=== PATIENT | female | born 1960 | race Caucasian/White ===

== ENCOUNTER 2017-02-10 16:06 | Observation (INO) | payer OTHER ==
[2017-02-10] VITALS (7 sets, daily range): BP systolic 132–148; BP diastolic 71–86; PULSE 54–63; RESP 13–20; O2SAT 96–99
[~2017-02-10] VITALS: Ht 165.1 cm; Wt 107.6 kg
[~2017-02-10 16:06] MED LIST: ASPI-973 PO; ASPI81TA3 PO; CLOP75TA28 PO; CLOP75TA3 PO; LIP40 PO; METO25TA99 PO; NICO1PAT16 TRANSDERM
[2017-02-10 16:31] LABS: BASOPHILS % (AUTO) 0.5 % (0-3); EOSINOPHILS % (AUTO) 2.5 % (0-5); MONOCYTES % (AUTO) 6.4 % (4-12); Mean Corpuscular Hemoglobin 28.6 pg (27.0-35.0); NEUTROPHILS % (AUTO) 60.9 % (40-74); Platelet Count 265 bil/L (150-400)
--- NOTE | 2017-02-10 16:52 | ED.REPORT ---
HPI-Chest Pain 40 and Over Date of Service Feb 10, 2017 ED Provider: Dr. Caryn Cruz MD A 56 year old female with a history of hypertension, hyperlipidemia and previous CT s/p cardiac stent and CABG presents to the ED via EMS complaining of lower chest discomfort that began 3 days ago. Patient was walking around when symptoms onset began. She was seen at Urgent Care today and given Nitro before being sent to the ED. The pain is located in her lower chest and upper abdomen. Her pain is exacerbated by flatulence and deep breath. Patient recently stopped taking Plavix. She states that this pain is lower than than the previous pain she felt during her CT that led to cardiac cath and CABG. She denies any SOB, recent fever, cough, cold or chills. Nursing Notes Stated Complaint: CHEST PAIN Chief Complaint: Chest Pain Nursing Notes Reviewed: Yes Allergies: Coded Allergies: erythromycin base (Verified Allergy, Severe, Stomach pain, 11/24/15) EDSON Inhibitors (Verified Allergy, Intermediate, Leg and chest pIn, 11/24/15) etodolac (Verified Allergy, Intermediate, HIVES, 11/24/15) iodine (Verified Allergy, Unknown, Blistering, 11/24/15) Scheduled Aspirin Chew (Aspirin Chew) 81 Mg Chew 162 MG PO DAILY Atorvastatin (Lipitor) 40 Mg Tablet 40 MG PO HS Cholecalciferol (Vitamin D3) (Vitamin D3) 2,000 Unit Tablet 2,000 UNIT PO DAILY Cyanocobalamin (Vitamin B12) 500 Mcg Tablet 1,000 MCG PO DAILY Fish Oil/Borage/Flax/Om3,6,9#1 ([place] 3-6-9 1,200 mg Softgel) 1,200 Mg Capsule 1 ,200 MG PO DAILY Metoprolol Succinate ER (Metoprolol Succinate ER) 25 Mg Tab.er.24h 25 MG PO QAM Ubidecarenone (Coenzyme Q-10) 200 Mg Capsule 200 MG PO DAILY General Time Seen by MD: 16:52 Chief Complaint Chest pain Hx Obtained From: Patient Arrived By: Ambulance Sudden in Onset?: No Onset Occurred: 3 days ago Symptom Duration: Since onset Location: : Chest left: Chest right: Epigastric Quality: Painful Radiation: : Does not radiate Migration/Movement: Reports: None Severity: Current: Mild Severity: Maximum: Moderate Associated with: Denies: Cough, non-productive, Cough, productive, Cough, with hemoptysis, Fever, Shortness of Breath Pertinent Negative: Pt denies other symptoms Exacerbated by: Deep breath Recent Healthcare: No recent doctor visit, No recent hospitalization Risk Factors )( CAD Risk Stratification Hypertension Risk factors reviewed )( TAD Risk Stratification Hypertension Risk factors reviewed )( PE Risk Stratification Risk factors reviewed Past Medical History Past Medical History Pt last had a stress test >5 years ago prior to surgery. Test was normal. Hospitalized 11/22-11/23 for chest pain: at time of d/c, results of MIBI study were pending Previous CT s/p CABG and stent Reports: Hyperlipidemia, Hypertension Past Surgical History Bilateral acromioplasty CABG Cardiac stent Family History Mother had two stents 10 years ago Smoking History Current Every Day Smoker Social History Alcohol Use: "Social" Drug Use: Denies drug use Other Social History: Good social support, , Local resident Ambulatory Status Independent Review of Systems Constitutional: Denies: Chills, Fever Respiratory: Denies: Shortness of breath Cardiovascular: Reports: Chest pain (Lower) GI: Reports: Abdominal pain (Upper), Denies: Nausea, Vomiting Neurologic: Denies: Change LOC Complete sys rev & neg: except as marked. Physical Exam Initial Vital Signs Vital Signs (First) Date Time Temp Pulse Resp B/P Pulse Ox O2 Delivery O2 Flow Rate FiO2 02/10/17 16:29 36.7 62 14 137/86 99 Room Air Initial VS: Reviewed Head / Eyes: Atraumatic, Normocephalic, PERRL Extremities: Vascular intact, Neuro intact, No swelling, No tenderness Skin: Warm, Dry, No cyanosis Neurologic: Alert, Oriented, Nonfocal Psychiatric: Mood/affect normal, Behavior normal, Normal thought content General/Constitutional: Awake, Alert Respiratory / Chest: Atraumatic, Breath sounds NL, Breath sounds = bilat, No respiratory distress Cardiovascular: Heart rate NL, Regular rhythm, Heart sounds NL, No murmurs Abdomen: Atraumatic, Soft, Non-tender Interpretation & Diagnostics Lab Results Interpretation Result Diagram: 02/10/17 1619 02/10/17 1619 Test 02/10/17 16:19 02/10/17 17:09 White Blood Count 9.5th/mm3 (3.8-10.1) Red Blood Count 5.24mil/mm3 (3.90-5.20) Hemoglobin 15.0g/dL (12.0-15.6) Hematocrit 43.5% (35.0-46.0) Mean Corpuscular Volume 83.0fL (81-100) Mean Corpuscular Hemoglobin 28.6pg (27.0-35.0) Mean Corpuscular Hemoglobin Concent 34.5% (32.0-37.0) Red Cell Distribution Width 13.4% (12.3-15.4) Platelet Count 265bil/L (150-400) Neutrophils (%) (Auto) 60.9% (40-74) Lymphocytes (%) (Auto) 29.5% (14-46) Monocytes (%) (Auto) 6.4% (4-12) Eosinophils (%) (Auto) 2.5% (0-5) Basophils (%) (Auto) 0.5% (0-3) Sodium Level 142mEq/L (134-144) Potassium Level 4.2mEq/L (3.5-5.2) Chloride Level 104mEq/L (97-108) Carbon Dioxide Level 23mmol/L (18-29) Blood Urea Nitrogen 11mg/dL (6-24) Creatinine 0.67mg/dL (0.57-1.00) Estimat Glomerular Filtration Rate 130mL/min (>59) Glucose Level 104mg/dL (60-99) Calcium Level 9.2mg/dL (8.5-10.1) Magnesium Level 2.1mg/dL (1.6-2.6) Total Bilirubin 0.3mg/dL (0.0-1.2) Aspartate Amino Transf (AST/SGOT) 19U/L (0-50) Alanine Aminotransferase (ALT/SGPT) 23U/L (0-32) Alkaline Phosphatase 94U/L (25-150) Troponin T < 0.010ug/L (0.0-0.011) Total Protein 6.9g/dL (6.4-8.4) Albumin 4.2g/dL (3.4-5.0) Lipase 153U/L (13-60) Hold Urine Received (Received) ECG Interpretation ECG Interpretation: Normal sinus rhythm Rate 56 Time: 16:34 Interpreted by: ED physician Normal ECG Interpretation: No change from prior ECGs X-Ray Chest Interpretation Chest Xray Interpretation: IMPRESSION: No acute cardiopulmonary disease process. Dictated by: Melissa Dubon MD, PhD on 02/10/2017 at 17:30 Interpretation / Wet Read by: Interpret - Radiologist Re-Eval/Medical Decision Med Decision/Clinical Course Presents with left upper quadrant/chest pain. History of coronary artery disease with stenting and CABG about a year ago stopped Plavix 2 weeks ago. Describes this pain as left upper quadrant radiating into the epigastrium and up under her sternum. Lipase is mildly elevated. Symptoms are consistent with acute pancreatitis. Given her recent cardiac history I believe that additional serial troponins are prudent. Discussed bowel rest IV fluids pain and nausea medication as needed. She has no identified reason for developing pancreatitis, no new or changed medications. Recent lipid panel suggested that everything looked within normal limits no odd exposures. CT scan was requested in the emergency Department however she is allergic to iodine and not feeling well enough to drink oral contrast at this point believe additional imaging studies to hospitalist to determine if they are needed. No evidence of acute cholecystitis at this point Time of Eval: 19:35 Patient Status: Condition improved Re-Evaluation/Progress Note: Patient is rechecked. She is informed of her results and diagnosis. All of the patient's questions about her diagnosis are addressed. She understands and agrees with plan to admit. Consultation : Referral / Consult Name: Gregg Lundberg MD Consulted With: Hospitalist Call Returned at: 20:35 Vice President Digital Strategist: Will see patient, Agrees with eval, Agrees with plan, Accepts admit Counseled Regarding: Diagnosis, Lab results, Need for follow-up, When/why to return to ED Discharge & Departure Primary Impression: Pancreatitis Chronicity: acute Pancreatitis type: unspecified pancreatitis type Qualified Code: K85.9 - Acute pancreatitis, unspecified Additional Impression: Chest pain Chest pain type: unspecified Qualified Code: R07.9 - Chest pain, unspecified Disposition: ADMITTED TO HOSPITAL Discharge Condition All VS Reviewed: Yes Condition: Improved Referrals: Addi Osorio MD (PCP) Manjit Attestation Portions of this note were transcribed by Jasmina Edge. I, Dr. Cruz personally performed the history, physical exam and medical decision-making; I reviewed and confirmed the accuracy of the information in the transcribed note. Signed by: Manjit Hernandez, 02/10/171999. copies to: Addi Osorio MD, Shawna L MD Feb 10, 2017 16:52 JASMINA EDGE Feb 10, 2017 17:01
[2017-02-10 17:00] LABS: TROPONIN T < 0.010 ug/L (0.0-0.011)
[2017-02-10 17:09] LABS: Magnesium 2.1 mg/dL (1.6-2.6)
--- NOTE | 2017-02-10 17:33 | DRSVH ---
PROCEDURE: X-RAY CHEST ONE VIEW, PORTABLE ([id number]) INDICATIONS: chest pain TECHNIQUE: One view of the chest was acquired. COMPARISON: [facility], CR, XR CHEST 1VW (PORTABLE), 11/24/2015, 15:17. FINDINGS: Surgical changes and devices: CABG procedure. Lungs and pleura: No pleural effusions or pneumothorax. Lungs are clear. Mediastinum: Mediastinal contours appear normal. Heart size is normal. Bones and chest wall: No suspicious bony lesions. Overlying soft tissues appear unremarkable. IMPRESSION: No acute cardiopulmonary disease process. Dictated by: Melissa Dubon MD, PhD on 02/10/2017 at 17:30 Approved by: Melissa Dubon MD, PhD on 02/10/2017 at 17:31
[2017-02-10] MEDS ORDERED: METO25TA99 PO (20:04)
[2017-02-10] MEDS ORDERED: ASPI81TA3 PO (20:04)
[2017-02-10] MEDS ORDERED: LIP40 PO (20:04)
[2017-02-10] MEDS ORDERED: UBID200C31 PO (20:07)
[2017-02-10] MEDS ORDERED: CHOL200025 PO (20:07)
[2017-02-10] MEDS ORDERED: FISH12002 PO (20:07)
[2017-02-10] MEDS ORDERED: CYAN500 PO (20:07)
[2017-02-10] MEDS ORDERED: 0.9% Sodium Chloride 1,000 ML IV SCH (21:21)
[2017-02-10] MEDS ORDERED: Polyethylene Glycol (PEG) 17 Gm Powder PO PRN (21:25)
[2017-02-10] MEDS ORDERED: Alum-Mag Hydrox-Simeth 30 mL Suspension PO PRN (21:25)
[2017-02-10] MEDS ORDERED: HYDROmorphone 1 mg/mL Inj IVPUSH PRN (21:25)
[2017-02-10] MEDS ORDERED: Ondansetron 2 mg/mL 2 mL Inj IVPUSH PRN (21:25)
--- NOTE | 2017-02-10 22:17 | PCM.HPMED ---
Subjective Date of Service Feb 10, 2017 Primary Provider: Admitting Physician: Gregg Lundberg MD Primary Care Physician: Addi Osorio MD Attending Physician: Gregg Lundberg MD Chief Complaint: Abdominal pain History of Present Illness: Patient is a 56 y.o. F with past medical history of hyptetension, hyperlipidemia , previous PA 2016 s/p CAGB and stent placement stopped plavix per cardiology, GERD. Patient presented to ED via EMS with complaint of lower chest pain that began three days ago, dramatically worsened today, seen at urgent care today and given nitroglycerin and set to ED. Patient stated that pain is like bad indigestion and "burning in my chest," localized to her epigastric area without radiation, rated as moderate to severe, made better with nothing, made worse with food, deep breathing, and flatulence, nausea. Patient noted increases flatulence, belching, pain is different than last PA. She denies SOB, fever, chills, burising, change of eye or skin color, chills, vomiting, dysuria , diarrhea, constipation, blood in stool, change in stool color. Patient notes recent change in diet to "paleo diet" fruit, vegetables, meat. Chest pain on admit resolved at time of examination, abdominal epigastric pain present well controlled. Review of Systems: A comprehensive review of systems was conducted with the patient and found to be negative except as above in the History of Present Illness. Allergies Coded Allergies: erythromycin base (Verified Allergy, Severe, Stomach pain, 11/24/15) EDSON Inhibitors (Verified Allergy, Intermediate, Leg and chest pIn, 11/24/15) etodolac (Verified Allergy, Intermediate, HIVES, 11/24/15) iodine (Verified Allergy, Unknown, Blistering, 11/24/15) PMH HTN GERD PA s/p CABG and stent Hyperlipidemia Surgical History CABG 2016 cardiac stent 2016 Bilateral shoulder arthroscopy Right cubital tunnel release Family History Cholecystitis no family history of pancreatic cancer Social History Hx Alcohol Use: Yes (occasional) Hx Substance Use: No Smoking Status: Former Smoker (Quit one year ago, 36 pack year history) Exam Vital Signs Vital Sign - Last Date Time Temp Pulse Resp B/P Pulse Ox O2 Delivery O2 Flow Rate FiO2 02/10/17 21:48 63 20 145/79 96 Room Air 02/10/17 16:29 36.7 Exam General: No acute distress, well-developed, well-nourished, appropriately interactive, obese HEENT: Normocephalic, atraumatic. External ears without defect. Pupils equal, round, and reactive to light and accommodation. Anicteric sclerae, moist conjunctivae, and no lid lag. Oropharynx free of erythema and cobble stoning with moist mucosa. Neck: Supple with full range of motion. No jugular venous distension. No bruits. No lymphadenopathy or thyromegaly. Cardiovascular: Regular rate and rhythm with no murmurs, rubs, or gallops appreciated Pulmonary: Clear to auscultation bilaterally with no crackles, wheezes, or rhonchi. Normal respiratory effort with no use of accessory muscles. Abdomen: Normoactive bowel tones present. Soft, epigastrium tender to palpation , nondistended. No hepatosplenomegaly or masses appreciated. Extremities: No clubbing, cyanosis, edema, or lymphadenopathy appreciated. Skin: Normal temperature, turgor, and texture; no rash, ulcers, Neurological: Cranial nerves grossly intact. Normal muscle strength, tone, and bulk. Normal speech, Psychiatric: Normal mood and affect. Alert and oriented to person, place, and time. Lab and Diagnostics Result Diagram: 02/10/17 1619 02/10/17 1619 X-Rays, CTs and MRIs Chest X-Ray IMPRESSION: No acute cardiopulmonary disease process. Dictated by: Melissa Dubon MD, PhD on 02/10/2017 at 17:30 Approved by: Melissa Dubon MD, PhD on 02/10/2017 at 17:31 Assessment & Plan Patient is a 56 y.o. F with past medical history of hypertension, hyperlipidemia , previous PA 2016 s/p CAGB and stent placement stopped plavix per cardiology, GERD. Admitted for treatment of acute pancreatitis. 1. Acute pancreatitis - NPO - IVF LR @ 125 mls/hr - Hydromorphone q mg IV Q4 for pain - Zofran for nausea - Protonix for GI prophylaxis - CT scan abd/pelvis ordered, pending. - Repeat CBC, CMP, lipase in AM Chronic conditions HTN - Continue home medications Hyperlipidemia - Hold statin GERD - Continue Pepcid Patient is admitted under observation status with expected length of stay less than 2 midnights due to severity of presenting symptoms. CODE STATUS: FULL CODE GI Prophlyaxis: Protonix DVT prophylaxis SQ heparin Pain Evaluation: Adequate Pain Control GI Prophylaxis: Proton Pump Inhibitor VTE Prophylaxis: Sub-Q Heparin (Unfractionated) Resuscitation Status: CPR: Attempt Resuscitation Attending Statement The patient was seen and examined together with Dr. Arreguin on 02/10 and I agree with the history, exam and plan as outlined in the note above. CT scan abdomen requested but patient has Iodine allergies and is currently on the protocol. JASMIN ARREGUIN DO Feb 10, 2017 22:17 Gregg Lnudberg MD Feb 10, 2017 23:04
--- NOTE | 2017-02-10 23:00 | NUR ---
admit: med rec complete in the ER. pt A&OX3. IVF infusing per orders. pt rates abd pain 4/10 declines pain meds at this time. NPO. will continue to monitor.
[2017-02-11] VITALS (7 sets, daily range): BP systolic 102–123; BP diastolic 63–75; PULSE 58–79; RESP 18–21; O2SAT 93–98
[2017-02-11] MEDS: Lactated Ringer's 1,000 ML IV SCH ×4 (00:15→22:05)
[2017-02-11] MEDS: predniSONE 20 mg Tablet PO SCH ×3 (00:20→12:39)
[2017-02-11] MEDS: Heparin 5,000 Unit/mL Inj SUBQ SCH ×3 (00:30→17:06)
[2017-02-11] MEDS ORDERED: diphenhydrAMINE 50 mg Capsule PO SCH (06:00)
[2017-02-11 06:12] LABS: BASOPHILS % (AUTO) 0.1 % (0-3); EOSINOPHILS % (AUTO) 0.3 % (0-5); MONOCYTES % (AUTO) 0.9 % (4-12); Mean Corpuscular Hemoglobin 28.9 pg (27.0-35.0); Mean Corpuscular Volume 83.1 fL (81-100); NEUTROPHILS % (AUTO) 85.5 % (40-74); Platelet Count 241 bil/L (150-400)
[2017-02-11] MEDS ORDERED: Pantoprazole 4 mg/mL 10 mL Inj IVPUSH SCH (07:30)
[2017-02-11] MEDS: MeTOProlol XL 25 mg ER24 Tablet PO SCH (09:16)
[2017-02-11] MEDS: Famotidine Inj 20 MG in IV Premix 1 EACH IV SCH ×2 (09:18→20:30)
--- NOTE | 2017-02-11 10:09 | PCM.PNMED ---
Subjective Date of Service Feb 11, 2017 Subjective - Pt seen and examined this morning. AAO x 3 - c/o moderate abdominal pain. States that pain is significantly less than yesterday. - Denies any vomiting, chest pain, or shortness of breath. Exam Vital Signs Vital Sign - Last Date Time Temp Pulse Resp B/P Pulse Ox O2 Delivery O2 Flow Rate FiO2 02/11/17 08:37 36.9 58 20 123/67 98 Room Air Intake and Output 02/10/17 02/10/17 02/11/17 Cumulative From/Thru 15:00 23:00 07:00 02/10/17 16:29 - 02/11/17 06:38 Intake Total 572 ml 572 ml Balance 572 ml 572 ml IV Total 572 ml 572 ml Exam General: No acute distress, well-developed, well-nourished, appropriately interactive, obese HEENT: Normocephalic, atraumatic. External ears without defect. Pupils equal, round, and reactive to light and accommodation. Anicteric sclerae, moist conjunctivae, and no lid lag. Oropharynx free of erythema and cobble stoning with moist mucosa. Neck: Supple with full range of motion. No jugular venous distension. No bruits. No lymphadenopathy or thyromegaly. Cardiovascular: Regular rate and rhythm with no murmurs, rubs, or gallops appreciated Pulmonary: Clear to auscultation bilaterally with no crackles, wheezes, or rhonchi. Normal respiratory effort with no use of accessory muscles. Abdomen: Normoactive bowel tones present. Soft, epigastrium tender to palpation , nondistended. No hepatosplenomegaly or masses appreciated. Extremities: No clubbing, cyanosis, edema, or lymphadenopathy appreciated. Skin: Normal temperature, turgor, and texture; no rash, ulcers, Neurological: Cranial nerves grossly intact. Normal muscle strength, tone, and bulk. Normal speech, Psychiatric: Normal mood and affect. Alert and oriented to person, place, and time. IVs and Medications Medications Reviewed: Medications were reviewed in detail Lab and Diagnostics Result Diagram: 02/11/17 0535 02/11/17 0535 X-Rays, CTs and MRIs Chest X-Ray IMPRESSION: No acute cardiopulmonary disease process. Dictated by: Melissa Dubon MD, PhD on 02/10/2017 at 17:30 Approved by: Melissa Dubon MD, PhD on 02/10/2017 at 17:31 Assessment & Plan 56 y.o. F with past medical history of hypertension, hyperlipidemia, previous [place] 2016 s/p CAGB and stent placement stopped plavix per cardiology, GERD. Admitted for treatment of acute pancreatitis. Acute pancreatitis - NPO - IVF LR @ 125 mls/hr - Hydromorphone q mg IV Q4 for pain - Zofran for nausea - Protonix for GI prophylaxis - CT scan abd/pelvis pending. She is allergic to Iodine, so will get benadryl and prednisone before the test. HTN - well controlled - Continue home medications - on metoprolol XL 25 mg Hyperlipidemia - Hold statin GERD - Continue Pepcid Patient is admitted under observation status with expected length of stay less than 2 midnights due to severity of presenting symptoms. CODE STATUS: FULL CODE GI Prophlyaxis: Protonix DVT prophylaxis SQ heparin GI Prophylaxis: Proton Pump Inhibitor VTE Prophylaxis: Sub-Q Heparin (Unfractionated) Resuscitation Status: CPR: Attempt Resuscitation Rafael Torres MD Feb 11, 2017 10:09
--- NOTE | 2017-02-11 14:05 | NUR ---
Social Work: Screening Data: Pt is a 56 y/o female admitted for pancreatitis, chest pain resolved. Pt's PCP is Dr Osorio, pt's insurance is [employer]. EMR reviewed. No d/c planning needs anticipated at this time. PAPER GRADER will continue to follow if needs arise. Assessment: Pt who is independent at baseline. Plan: Pt will d/c home via POV when medically stable. No d/c planning needs anticipated at this time. PAPER GRADER will continue to follow if needs arise. RONY Luz
--- NOTE | 2017-02-11 14:28 | DRSVH ---
PROCEDURE: CT ABDOMEN AND PELVIS WITH CONTRAST ([id number]) INDICATIONS: pancreatitis TECHNIQUE: After the administration of oral and intravenous contrast, 5 mm thick sections acquired from the diap hragms to the symphysis. 5 mm thick coronal and sagittal reformats were performed. For radiation do se reduction, the following was used: automated exposure control, adjustment of mA and/or kV accordi ng to patient size. Prior to the examination, the patient was pretreated for iodine allergy. COMPARISON: None. FINDINGS: Image quality: Excellent. ABDOMEN: Lung bases: Lung bases are clear. Heart size is normal. Solid organs: Liver and spleen are normal in size and enhancement. Gallbladder is within normal samson its. Biliary system is non-dilated. Pancreas enhances normally. No adrenal nodules. Kidneys are n ormal in size and enhancement, without hydronephrosis. Peritoneum and bowel: Stomach, small b appendix not seen. No evidence of appendicitis. owel, and col on loops are normal in caliber and wall thickness. No free fluid or air. Nodes and vessels: No retroperitoneal or mesenteric adenopathy. Aorta and inferior vena cava are no rmal in caliber. Miscellaneous: No ventral hernias. PELVIS: Genitourinary: Bladder wall thickness is normal. Miscellaneous: No inguinal hernias or adenopathy. Bones: No suspicious bony lesions. No vertebral body compression fractures. IMPRESSION: 1. No acute process. 2. No evidence of pancreatitis. 3. Appendix not seen. No evidence of appendicitis. Dictated by: Meggan Bunch M.D. on 02/11/2017 at 14:25 Approved by: Meggan Bunch M.D. on 02/11/2017 at 14:26
--- NOTE | 2017-02-11 18:30 | NUR ---
Pain /Activity: Patient has not had abdominal pain issues today. Her Abdominal CT scan was normal.She was premedicated as ordered before the test and had no issues with the CT contrast.She has been started on a clear liquid diet and is tolerating the food without issues.
--- NOTE | 2017-02-11 21:49 | PCM.PNMED ---
Subjective Date of Service Feb 11, 2017 Subjective Nurse called that patient's Iv site is bad. CT scan reviewed showed no evidence of pancreatitis. Diet will be advanced and encourage patient to increase PO fluids and will leave out any IV lines for now. Also changes PPI to Protonix 40 mg daily PO and stop IV Pepcid Gregg Lundberg MD Feb 11, 2017 21:49
[2017-02-11] MEDS: Pantoprazole 40 mg ER24 Tablet PO SCH (21:50)
[2017-02-12] MEDS: Heparin 5,000 Unit/mL Inj SUBQ SCH ×2 (00:30→07:59)
[2017-02-12] MEDS: Lactated Ringer's 1,000 ML IV SCH (06:05)
[2017-02-12 06:39] VITALS: BP 132/73; PULSE 67; RESP 20; O2SAT 96
[2017-02-12] MEDS: Pantoprazole 40 mg ER24 Tablet PO SCH (07:57)
[2017-02-12] MEDS: MeTOProlol XL 25 mg ER24 Tablet PO SCH (07:57)
[2017-02-12 08:36] LABS: BASOPHILS % (AUTO) 0.2 % (0-3); EOSINOPHILS % (AUTO) 0.3 % (0-5); MONOCYTES % (AUTO) 5.6 % (4-12); Mean Corpuscular Volume 83.6 fL (81-100); NEUTROPHILS % (AUTO) 68.7 % (40-74); Platelet Count 241 bil/L (150-400)
[2017-02-12 08:50] VITALS: BP 122/73; PULSE 65; RESP 20; O2SAT 98
--- NOTE | 2017-02-12 09:08 | PCM.DIMED ---
Discharge Instructions Date of Service Feb 12, 2017 Dates of Hospitalization Feb 10, 2017 at 21:10 Discharge Diagnosis Discharge Diagnosis Acute pancreatitis Call your provider Shortness of breath, Bleeding, Chest pain, Vomitting, Excessive diarrhea Patient Instructions Follow up with your primary physician within two weeks of discharge. Follow-up with PCP in: 2 weeks Rafael Torres MD Feb 12, 2017 09:08
--- NOTE | 2017-02-12 09:11 | PCM.DC.MED ---
Discharge Summary Date of Service Feb 12, 2017 Dates of Hospitalization Date of Hospital Admission Feb 10, 2017 at 21:10 Date of Discharge: Feb 12, 2017 Providers: Admitting Physician: Gregg Lundberg MD Primary Care Physician: Addi Osorio MD Attending Physician: Gregg Lundberg MD Diagnosis at Time of Discharge Diagnosis at Time of Discharge Acute pancreatitis Procedures XRay, CTs & MRIs Chest X-Ray IMPRESSION: No acute cardiopulmonary disease process. Dictated by: Melissa Dubon MD, PhD on 02/10/2017 at 17:30 Approved by: Melissa Dubon MD, PhD on 02/10/2017 at 17:31 CT Abdomen: "ABDOMEN: Lung bases: Lung bases are clear. Heart size is normal. Solid organs: Liver and spleen are normal in size and enhancement. Gallbladder is within normal limits. Biliary system is non-dilated. Pancreas enhances normally. No adrenal nodules. Kidneys are normal in size and enhancement, without hydronephrosis. Peritoneum and bowel: Stomach, small b appendix not seen. No evidence of appendicitis. owel, and colon loops are normal in caliber and wall thickness. No free fluid or air. Nodes and vessels: No retroperitoneal or mesenteric adenopathy. Aorta and inferior vena cava are normal in caliber. Miscellaneous: No ventral hernias. PELVIS: Genitourinary: Bladder wall thickness is normal. Miscellaneous: No inguinal hernias or adenopathy. Bones: No suspicious bony lesions. No vertebral body compression fractures. IMPRESSION: 1. No acute process. 2. No evidence of pancreatitis. 3. Appendix not seen. No evidence of appendicitis." Brief History Patient is a 56 y.o. 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 Patient presented to ED via EMS with complaint of lower chest pain that began three days ago, dramatically worsened today, seen at urgent care today and given nitroglycerin and set to ED. Patient stated that pain is like bad indigestion and "burning in my chest," localized to her epigastric area without radiation, rated as moderate to severe, made better with nothing, made worse with food, deep breathing, and flatulence, nausea. Patient noted increases flatulence, belching, pain is different than last AL. She denies SOB, fever, chills, burising, change of eye or skin color, chills, vomiting, dysuria , diarrhea, constipation, blood in stool, change in stool color. Patient notes recent change in diet to "paleo diet" fruit, vegetables, meat. Chest pain on admit resolved at time of examination, abdominal epigastric pain present well controlled. Hospital Course 56 y.o. F with past medical history of hypertension, hyperlipidemia, previous AL 2016 s/p CAGB and stent placement stopped plavix per cardiology, GERD. Admitted for treatment of acute pancreatitis. Acute pancreatitis - CT abdomen negative for acute pancreatitis. - She was kept NPO and then diet was advanced gradually. - Lipase trended down: 66 <--- 127 <--- 153 - Hydromorphone q mg IV Q4 for pain - Zofran for nausea - Protonix for GI prophylaxis HTN - well controlled - Continue home medications - on metoprolol XL 25 mg GERD - Continue Pepcid Exam Vital Signs (Last) Date Time Temp Pulse Resp B/P Pulse Ox O2 Delivery O2 Flow Rate FiO2 02/12/17 08:50 36.4 65 20 122/73 98 Room Air Exam General: No acute distress, well-developed, well-nourished, appropriately interactive, obese HEENT: Normocephalic, atraumatic. External ears without defect. Pupils equal, round, and reactive to light and accommodation. Anicteric sclerae, moist conjunctivae, and no lid lag. Oropharynx free of erythema and cobble stoning with moist mucosa. Neck: Supple with full range of motion. No jugular venous distension. No bruits. No lymphadenopathy or thyromegaly. Cardiovascular: Regular rate and rhythm with no murmurs, rubs, or gallops appreciated Pulmonary: Clear to auscultation bilaterally with no crackles, wheezes, or rhonchi. Normal respiratory effort with no use of accessory muscles. Abdomen: Normoactive bowel tones present. Soft, nontender, nondistended. No hepatosplenomegaly or masses appreciated. Extremities: No clubbing, cyanosis, edema, or lymphadenopathy appreciated. Skin: Normal temperature, turgor, and texture; no rash, ulcers, Neurological: Cranial nerves grossly intact. Normal muscle strength, tone, and bulk. Normal speech, Psychiatric: Normal mood and affect. Alert and oriented to person, place, and time. Test 02/10/17 16:19 02/10/17 17:09 02/12/17 08:10 Magnesium Level 2.1mg/dL (1.6-2.6) Troponin T < 0.010ug/L (0.0-0.011) Hold Urine Received (Received) White Blood Count 10.5th/mm3 (3.8-10.1) Red Blood Count 4.76mil/mm3 (3.90-5.20) Hemoglobin 13.8g/dL (12.0-15.6) Hematocrit 39.8% (35.0-46.0) Mean Corpuscular Volume 83.6fL (81-100) Mean Corpuscular Hemoglobin 29.0pg (27.0-35.0) Mean Corpuscular Hemoglobin Concent 34.7% (32.0-37.0) Red Cell Distribution Width 13.6% (12.3-15.4) Platelet Count 241bil/L (150-400) Neutrophils (%) (Auto) 68.7% (40-74) Lymphocytes (%) (Auto) 25.0% (14-46) Monocytes (%) (Auto) 5.6% (4-12) Eosinophils (%) (Auto) 0.3% (0-5) Basophils (%) (Auto) 0.2% (0-3) Sodium Level 143mEq/L (134-144) Potassium Level 3.8mEq/L (3.5-5.2) Chloride Level 107mEq/L (97-108) Carbon Dioxide Level 22mmol/L (18-29) Blood Urea Nitrogen 10mg/dL (6-24) Creatinine 0.79mg/dL (0.57-1.00) Estimat Glomerular Filtration Rate 108mL/min (>59) Glucose Level 121mg/dL (60-99) Calcium Level 9.1mg/dL (8.5-10.1) Total Bilirubin 0.3mg/dL (0.0-1.2) Aspartate Amino Transf (AST/SGOT) 15U/L (0-50) Alanine Aminotransferase (ALT/SGPT) 19U/L (0-32) Alkaline Phosphatase 82U/L (25-150) Total Protein 5.9g/dL (6.4-8.4) Albumin 3.6g/dL (3.4-5.0) Lipase 66U/L (13-60) Discharge Medications Discharge Medications Aspirin Chew (Aspirin Chew) 81 Mg Chew 162 MG PO DAILY (Reported) Atorvastatin (Lipitor) 40 Mg Tablet 40 MG PO HS (Reported) Cholecalciferol (Vitamin D3) (Vitamin D3) 2,000 Unit Tablet 2,000 UNIT PO DAILY (Reported) Cyanocobalamin (Vitamin B12) 500 Mcg Tablet 1,000 MCG PO DAILY (Reported) Fish Oil/Borage/Flax/Om3,6,9#1 (Perry 3-6-9 1,200 mg Softgel) 1,200 Mg Capsule 1 ,200 MG PO DAILY (Reported) Metoprolol Succinate ER (Metoprolol Succinate ER) 25 Mg Tab.er.24h 25 MG PO QAM (Reported) Ubidecarenone (Coenzyme Q-10) 200 Mg Capsule 200 MG PO DAILY (Reported) Followup Plan Patient Instructions Follow up with your primary physician within two weeks of discharge. Follow-up with PCP in: 2 weeks Rafael Torres MD Feb 12, 2017 09:10 ,200 MG PO DAILY (Reported) Metoprolol Succinate ER (Metoprolol Succinate ER) 25 Mg Tab.er.24h 25 MG PO QAM (Reported) Ubidecarenone (Coenzyme Q-10) 200 Mg Capsule 200 MG PO DAILY (Reported) Followup Plan Patient Instructions Follow up with your primary physician within two weeks of discharge. Follow-up with PCP in: 2 weeks Rafael Torres MD Feb 12, 2017 09:10
--- NOTE | 2017-02-12 10:47 | NUR ---
Social Work-discharge: Data:EMR Reviewed. Pt is on day 2 of hospitalization for pancreatitis per H&P. Pt is medically stable for discharge today. Per RN notes, pt has been up independent in her room. Pt's spouse to provide transport home today. No discharge needs identified. All updated and agreeable to plan. Assessment:pt who is independent at baseline. Plan:Pt to discharge home today via POV. No discharge needs identified. All updated and agreeable to plan. RONY Zheng
--- NOTE | 2017-02-12 11:14 | NUR ---
Discharge Nursing note: Patient was discharged to home at 1115. Patient had no IV access to remove. All of patients discharge information was reviewed with her and her questions were answered to her satisfaction.Patient had nothing in the hospital safe or pharmacy. Patient was escorted to the hospital lobby by nursing staff member and she was driven home by her .
[2017-04-03] MEDS ORDERED: HCTZ1TAB PO (12:57)
[2017-04-03] MEDS ORDERED: LACT1CAP65 PO (12:57)
== END 2017-02-12 11:10 | disposition home or self-care (01) ==
LOC: SED 16:06 → EDBD 16:06 → MPC 21:10
PROVIDERS: ADMIT Hospitalist; ATTEND Hospitalist
DX: K85.90 Acute pancreatitis without necrosis or infection, unspecified (principal); I10 Essential (primary) hypertension; E78.5 Hyperlipidemia, unspecified; I25.10 Atherosclerotic heart disease of native coronary artery without angina pectoris; K21.9 Gastro-esophageal reflux disease without esophagitis; Z95.1 Presence of aortocoronary bypass graft; Z88.8 Allergy status to other drugs, medicaments and biological substances; I25.2 Old myocardial infarction; Z95.5 Presence of coronary angioplasty implant and graft; Z87.891 Personal history of nicotine dependence
CPT/HCPCS: 36415; 71010; 74177; 80053; 83690; 83735; 84484; 85025; 93005; 99285; G0378; J1644; J3490; J7120; Q9967

== ENCOUNTER 2017-04-08 07:53 | Day surgery (SDC) | payer OTHER ==
--- NOTE | 2017-04-06 11:58 | PCM.ANEPRE ---
Anesthesia Pre-Op Review Reason for Review: CARDIAC HX STOP BANG 03/28 Anesthesia Recommendations: Proceed with Procedure Additional Comments Cardiac issues seem stable (see note from cardiology 01/2017) reassess DOS. Patient seen 08/25/16 for sleep issues and sleep study ordered but not done! Fairly low risk procedure and could do CAREN protocol post-op but up to anesthesiologist on DOS to delay or require overnight admission. lap albino pre- op orders entered. Chart Reviewed by: Chris Dugan MD April 06, 2017 11:58
[~2017-04-08] VITALS: Ht 167.6 cm; Wt 107.6 kg
[2017-04-08] VITALS (13 sets, daily range): BP systolic 104–154; BP diastolic 54–92; PULSE 66–76; RESP 13–22; O2SAT 93–99
[2017-04-08] MEDS: Lactated Ringer's 1,000 ML IV SCH ×2 (05:27→10:28)
[~2017-04-08 07:53] MED LIST changes: -ASPI-973 PO; +CHOL200025 PO; -CLOP75TA28 PO; -CLOP75TA3 PO; +CYAN500 PO; +FISH12002 PO; +HCTZ1TAB PO; +LACT1CAP65 PO; +Lactated Ringer's 1,000 ML IV SCH; +Levofloxacin 500 mg/100 mL D5W IV SCH; -NICO1PAT16 TRANSDERM
[2017-04-08] MEDS ORDERED: Ondansetron 2 mg/mL 2 mL Inj ONE (07:54)
[2017-04-08] MEDS ORDERED: Neostigmine 1 mg/mL 10 mL Inj ONE (07:54)
[2017-04-08] MEDS ORDERED: Propofol 10,000 mCg/mL 20 mL Inj ONE (07:54)
[2017-04-08] MEDS ORDERED: Dexamethasone 4 mg/mL Inj ONE (07:54)
[2017-04-08] MEDS ORDERED: Glycopyrrolate 0.2 MG/ML 1mL Inj ONE (07:54)
[2017-04-08] MEDS ORDERED: MeTOProlol 1 mg/mL 5 mL Inj ONE (07:54)
[2017-04-08] MEDS ORDERED: fentaNYL-PF 50 mCg/mL 2 mL Inj ONE (07:54)
[2017-04-08] MEDS ORDERED: Rocuronium 10 mg/mL 5 mL Inj ONE (07:54)
--- NOTE | 2017-04-08 10:08 | PCM.HPANE ---
Patient Data Surgeon Admitting Provider: Attending Provider:Africa Pinon MD Primary Care Physician:Addi Osorio MD Other Provider:Mana Aranaingham Anesthesia Reason for Visit Chronic Cholecystitis Ht/WT & BMI Height (Feet): 5 Height (Inches): 6.00 Weight (Kilograms): 107.600 Body Mass Index 38.00 Allergies Coded Allergies: EDSON Inhibitors (Verified Allergy, Severe, Leg and chest pIn, 04/03/17) etodolac (Verified Allergy, Severe, HIVES, 04/03/17) iodine (Verified Allergy, Severe, Blistering, 04/03/17) latex (Verified Allergy, Unknown, UNKNOWN, 04/03/17) nicotine (Verified Allergy, Unknown, UNKNOWN, 04/03/17) erythromycin base (Verified Adverse Reaction, Severe, Stomach pain, ) Past Anesthesia History Anesthesia History: Denies:: Anesthesia Reactions, Malignant Hyperthermia Diabetes History Hx Diabetes?: No MRSA MRSA: No Medications Blood Thinner: Aspirin Hypertension Medication: Yes (ALDACTAZIDE) Home Meds Incl Beta Fitz: Yes (Metoprolol 25mg) Date Beta Fitz Taken: April 08, 2017 Time Beta Fitz Taken: 629 Reported Medications Lactobacillus Acidophilus (Probiotic)1 Each Capsule1 Each PO DAILY 04/03/17 Spironolactone/HCTZ 25-25 mg (Aldactazide 25-25 mg)1 Tab Tablet1 Tablet PO DAILY Ref 0 04/03/17 Cyanocobalamin (Vitamin B12)500 Mcg [id number] Mcg PO DAILY 02/10/17 Fish Oil/Borage/Flax/Om3,6,9#1 (Aurora 3-6-9 1,200 mg Softgel)1,200 Mg Capsule1, 200 Mg PO DAILY 02/10/17 Cholecalciferol (Vitamin D3) (Vitamin D3)2,000 Unit Tablet1,000 Unit PO DAILY 02/10/17 Metoprolol Succinate ER 25 Mg Tab.er.24h25 Mg PO QAM Ref 0 02/10/17 Atorvastatin (Lipitor)40 Mg [id number] Mg PO HS Ref 0 02/10/17 Aspirin Chew 81 Mg Chew81 Mg PO DAILY Ref 0 02/10/17 Discontinued Reported Medications Ubidecarenone (Coenzyme Q-10)200 Mg [id number] Mg PO DAILY 02/10/17 History History of ENT Problems?: Yes HEENT History: Positive for:: Sinus Problem (freq sinus infections) Denies:: Cataracts Dysphagia Hearing Problem (HX RECURRENT OM W/ RUPT TM) Denture Type: Full- Upper Full- Lower Teeth Condition: Tooth Decay Inflamed Gums Missing Teeth Other HEENT Pertinent History: S/P TONSILLECTOMY Hx of Heart Problems?: Yes Cardiovascular History: Positive for:: Cardiac Surgery (S/P HEART CATH/STENTS 11/2015, CABG (2 VESSEL) 01/2016) Chest Pain (NSTEMI 01/2016) Coronary Artery Disease Hypertension (HYPERLIPIDEMIA) Denies:: Congestive Heart Failure Heart Murmur (ECHO 11/2015 EF 60%) Irregular Heartbeat Pacemaker Thrombophlebitis Valvular Heart Disease Hx of Respiratory Problem?: Yes Respiratory History: Positive for:: Dyspnea Pneumonia (HX OF) Denies:: Asthma COPD Chest Surgery Emphysema Hemoptysis Tuberculosis Use of C-PAP Machine (SUSPECT CAREN+ SLEEP STUDY ORDERED BUT NOT PERFORMED ) Hx Neurologic Problems?: Yes Neurological History: Positive for:: Headaches Denies:: Alzheimer's Disease CVA Dementia Dizziness Parkinson's Disease Seizures Hx of GI Problems?: Yes Hx of Problems?: No Genitourinary History: Denies:: HX of Hemodialysis Kidney Stones Urinary Tract Infection HX of Peritoneal Dialysis: No Female Hx: Denies:: Currently Endometriosis Pelvic Inflammatory Problems with Breasts? Skin History: Denies:: History Skin Disorders? Pressure Ulcers Hx Musculoskeletal Problems?: Yes Musculoskeletal History: Positive for:: Back Injury (scoliosis) Musculoskeletal Trauma (S/P B/L ACROMIOPLASTY,RT CUBITAL TUNNEL RELEASE) Denies:: Joint Replacement Hx of Psycho/Social Problems?: No Psycho Social History: Denies:: Anxiety Bipolar Disorder Hx Depression Suicide Attempt Hx Surgeries?: Yes (HEART CATH/STENTS,CABG,BTL,RT CUBITAL TUNNEL,B/L SHOULDER RPR'S TONSILS) Hx Any Other Health Problems?: Yes Other History: Positive for:: Hospitalization (PANCREATITIS 01/2017) Denies:: Cancer Endocrine Disease Thyroid Disease History Blood Transfusions: Denies:: Blood Transfuse Reaction Blood Transfusions Hx Diabetes: No Hx Alcohol Use: Yes (RARE)Hx Substance Use: No Smoking Status: Former Smoker Have You Smoked inLast 12 mo: NoApprox How Many Cigarettes/day: 1 PPD 36 PK/ YR/HX Stop/Bang Treated for Sleep Apnea?: No Do You Have a CPAP Machine?: No S-Snoring: Do You Snore Loudly: Yes T-Tired: feel tired, fatigued: No O-Obsered: Observed not breath: No P-Blood Pressure: treated: Yes B- Body Mass Index > 35 kg/m2: Yes A- Age over 50: Yes N- Neck Large Circumference: Yes G- Gender Male: No CAREN Total Score: 5 CAREN Risk Assessment: High Risk, =/>3 Yes Risk Assessment Category Category 1A: Patient has history of documented sleep apnea, and HAS NOT received any narcotic, sedative or anesthesia administration during this stay. Category 1B: Patient has history of documented sleep apnea, and HAS received any narcotic , sedative or anesthesia administration during this stay Category 2: Patient has SUSPECTED Obstructive Sleep Apnea, and HAS received any narcotic , sedative or anesthesia administration during this stay. Category 3: Patient has SUSPECTED Obstructive Sleep Apnea and HAS NOT received narcotic, sedative or anesthesia administration during this stay. Category 4: Outpatient in Procedural Areas with known sleep apnea or who screen positive for High Risk via the STOP/BANG questionnaire. Exam Exam Vital Signs Vital Signs Date Time Temp Pulse Resp B/P Pulse Ox O2 Delivery O2 Flow Rate FiO2 04/08/17 08:03 36.2 76 16 154/81 99 Room Air General Appearance: Oriented X3 HEENT/AIRWAY: MP 2 Lungs: Normal Air Movement Heart: Regular Rate/Rhythm Meds/Labs/Diagnostics Admission Meds Current Medications Lactated Ringer's (Lr) 1,000 ml @ 120 mls/hr Q8H20M IV Last administered on 05:27; Start 04/08/17 at 05:00; Stop 04/08/17 at 13:19 Gabapentin (Neurontin) 600 mg PREOP ONCE PO Last administered on 04/08/17 08: 30; Start 04/08/17 at 06:00; Stop 04/08/17 at 06:01; Status DC Scopolamine (Transderm-Scop Patch) 1.5 mg ONCE ONCE TOPICAL Last administered on 04/08/17 08:30; Start 04/08/17 at 05:00; Stop 04/08/17 at 05:01; Status DC Plan Impression Patient chart reviewed, patient interviewed and anesthestic plan with risks, benefits, and alternatives discussed, and informed consent obtained. ASA Physical Status: ASA3 Severe Disease Anesthetic Plan: GA Bene/Risks/Altern/Consents: Yes HP Complete Prior to Induction: Yes Steven Pool MD April 08, 2017 10:08
[2017-04-08] MEDS ORDERED: Lactated Ringer's 1,000 ML IV SCH (10:27)
[2017-04-08] MEDS ORDERED: Lactated Ringer's 500 ML IV PRN (10:27)
[2017-04-08] MEDS ORDERED: fentaNYL-PF 50 mCg/mL 2 mL Inj IVPUSH PRN (10:30)
[2017-04-08] MEDS ORDERED: Ondansetron 2 mg/mL 2 mL Inj IVPUSH PRN (10:30)
[2017-04-08] MEDS ORDERED: MetoCLOpramide 5 mg/mL 2 mL Inj IVPUSH PRN (10:30)
[2017-04-08] MEDS ORDERED: HYDROmorphone 1 mg/mL Inj IVPUSH PRN (10:30)
[2017-04-08] MEDS ORDERED: EPHEDrine Sulfate 50 mg/mL Inj IVPUSH PRN (10:30)
[2017-04-08] MEDS ORDERED: Dexamethasone 4 mg/mL Inj IVPUSH PRN (10:30)
[2017-04-08] MEDS ORDERED: Phenylephrine 10,000 mCg/mL Inj IVPUSH PRN (10:30)
[2017-04-08] MEDS ORDERED: Iopamidol-300 50 mL Inj IV ONE (10:55)
[2017-04-08] MEDS ORDERED: Bupivacaine-MPF 0.5% 30 mL Inj INFILTRATE ONE (10:55)
--- NOTE | 2017-04-08 12:14 | DRSVH ---
PROCEDURE: X-RAY OPERATIVE CHOLANGIOGRAM ([id number]) INDICATIONS: CHOLECYSTITIS COMPARISON: [place], [place], HEPATOBILIARY SCAN WITH CCK, 03/16/2017, 9:47. [facility], CT, CT ABD PELVIS W CON, 02/11/2017, 13:43. FINDINGS: Biliary ducts: The surgeon injected contrast into the biliary ducts after cannulation of the cystic duct stump. Visualized intra- and extrahepatic bile ducts are normal in caliber, without strictures. No intraluminal filling defects to suggest retained ductal stones or sludge. No evidence for iatro genic ductal injury. Duodenum: Contrast flows promptly through the sphincter of Oddi into the duodenum, which appears nor mal in caliber. IMPRESSION: Normal operative cholangiogram. Dictated by: Harrison BENTON Interpreted: Arun Mc MD on 04/08/2017 at 12:13 Transcribed by: BRET on 04/08/2017 at 12:13 Approved by: Arun Mc M.D. on 04/08/2017 at 14:34
[2017-04-08] MEDS ORDERED: OXYC-474 PO (12:43)
[2017-04-08] MEDS ORDERED: POLY17PO6 PO (12:44)
--- NOTE | 2017-04-08 14:24 | PCM.ANEP1 ---
Post Anesthesia PACU Phase 1 Assessment Vital Signs Vital Signs Date Time Temp Pulse Resp B/P Pulse Ox O2 Delivery O2 Flow Rate FiO2 04/08/17 13:29 36.6 71 16 142/72 94 Room Air 04/08/17 13:22 66 16 138/64 94 Room Air 04/08/17 13:15 36.1 66 15 134/72 93 Room Air 04/08/17 13:00 67 13 134/70 93 Room Air 04/08/17 12:50 67 22 127/72 95 Room Air 04/08/17 12:45 71 16 128/71 97 Room Air 04/08/17 12:40 71 20 126/92 99 Simple Mask 10 04/08/17 12:35 70 17 137/71 99 Simple Mask 10 04/08/17 12:30 68 15 128/74 98 Simple Mask 10 04/08/17 12:25 69 16 121/68 98 Simple Mask 10 04/08/17 12:20 67 14 104/54 98 Simple Mask 10 04/08/17 12:17 37.4 68 14 111/56 98 Simple Mask 10 04/08/17 08:03 36.2 76 16 154/81 99 Room Air Anesthetic Administered: GA Level of Alertness: Awake, talking Pain: No Nausea or Vomiting: No CV Function and Hydration: Yes Airway Device: Oralpharangeal Airway Oxygen Delivery: Room Air Lungs: Normal Air Movement PACU Phase 2 Assessment Patient Instructions Provided: N/A Steven Pool MD April 08, 2017 14:24
--- NOTE | 2017-04-09 07:20 | OP ---
[address] [address] OPERATIVE REPORT PATIENT: VIRGINIA AYOUB : 1960 MR#: [id number] ADMIT: 04/08/2017 JOB ID: [id number] DATE OF SURGERY: 04/08/2017 PREOPERATIVE DIAGNOSIS(ES): 1. Pancreatitis. 2. Possible chronic cholecystitis. POSTOPERATIVE DIAGNOSIS(ES): Possible gallstone pancreatitis. OPERATION PERFORMED: Laparoscopic cholecystectomy with cholangiogram. SURGEON: Africa Pinon MD BUSINESS EDUCATION PROFESSOR: Julia Coelho MS-3 COMPLICATIONS: None. CONDITION OF PATIENT: Stable. INDICATIONS: The patient is a 56-year-old lady who has a multitude of symptoms related to her abdomen over the years. These include bloating, pain, reflux, and nausea. She presented to the emergency room on February 10, 2017, with severe pain and was admitted with acute pancreatitis. She was discharged home a couple of days later. She has had multiple abdominal ultrasounds in the past. There were non-shadowing opacities thought to be polyps but no obvious stones. When she saw Dr. Osorio in followup, he obtained a HIDA scan and sent her for surgical consultation. After discussing the risks, benefits, and alternatives, she is here today for a laparoscopic cholecystectomy. PROCEDURE DETAILS: She was placed in supine position and underwent smooth induction of general anesthesia. Abdomen was prepped and draped in the usual sterile fashion. Surgical time-out was undertaken using safety checklist, and all were in agreement. I began by making a supraumbilical incision and entered the abdomen using combination of open Dunia technique and Optiview trocar. Obtained pneumoperitoneum and then up sized at 10 mm. I then placed three 5 mm ports in the upper abdomen under direct vision and retracted the gallbladder cephalad and to the right and dissected the triangle of Calot anteriorly and posteriorly and then divided the cystic artery between clips. I then clipped the cystic duct towards specimen and obtained a cholangiogram which showed normal anatomy with no filling defects. I then clipped the cystic duct doubly on the patient's side and then divided the cystic duct. I dissected the gallbladder carefully off the liver bed with good hemostasis. I then placed it into an EndoCatch bag and removed it through the umbilical port site. I then removed the ports under direct vision. I evacuated the pneumoperitoneum and then closed the umbilical port fascia with [id number] 0-Vicryl suture. Skin was reapproximated with 4-0 Monocryl. Steri-Strips and sterile dressing were applied. Patient was recovered from anesthesia, taken to the recovery room in stable condition.
--- NOTE | 2017-04-11 15:40 | PATH ---
SURGICAL PATHOLOGY Attending Physician:Africa Pinon MD CASE STATUS: Signed Out PATIENT NAME: VIRGINIA AYOUB PID: [id number] : 1960 DATE COLLECTED:04/08/2017 20:32 SPECIMEN: Gallbladder CLINICAL HISTORY: CHRONIC CHOLECYSTITIS 1). GALLBLADDER FINAL DIAGNOSIS: 1.GALLBLADDER: ACALCULOUS CHRONIC CHOLECYSTITIS. ICD10 K81.1 GROSS DESCRIPTION: The specimen is received in one formalin filled container labeled with the patient's name, sublabeled "gallbladder" and consists of an intact 7.0 x 3.0 x 2.0 CM gallbladder. The serosa is smooth. The wall is 0.2-0.3 CM in thickness. The mucosa is a dark green tobar in color. The lumen contains a dark green-brown friable some mucoid material and no calculus are noted. 5 service liaison representative sections are submitted in one cassette. 04/08/2017 DAC MICRO DESCRIPTION: See diagnosis. ICD-9 CODES: CPT CODES: 1: 49031 Electronically Signed Out Angel Mratins MD [facility] [address], [place] [address] Technical component performed at [facility], [facility] [address], [place], [address]
== END 2017-04-08 23:59 | disposition home or self-care (01) ==
LOC: SAS 07:53
PROVIDERS: ATTEND Student in an Organized Health Care Education/Training Program
DX: K81.1 Chronic cholecystitis (principal); I25.10 Atherosclerotic heart disease of native coronary artery without angina pectoris; I10 Essential (primary) hypertension; G47.00 Insomnia, unspecified; G47.33 Obstructive sleep apnea (adult) (pediatric); E78.5 Hyperlipidemia, unspecified; I25.2 Old myocardial infarction; M54.5 Low back pain; E66.9 Obesity, unspecified; Z68.39 Body mass index [BMI] 39.0-39.9, adult; Z95.5 Presence of coronary angioplasty implant and graft; Z95.1 Presence of aortocoronary bypass graft; Z87.891 Personal history of nicotine dependence; Z79.82 Long term (current) use of aspirin
CPT/HCPCS: 47563; 74300; C1713; J1100; J1170; J1200; J2405; J2710; J2765; J3010; J7120; Q9967

== ENCOUNTER 2017-07-06 11:45 | Day surgery (SDC) | payer OTHER ==
[~2017-07-06] VITALS: Ht 165.1 cm; Wt 111.1 kg
[~2017-07-06 11:45] MED LIST changes: +Lactated Ringer's 1,000 ML IV ONE; -Lactated Ringer's 1,000 ML IV SCH; -Levofloxacin 500 mg/100 mL D5W IV SCH; +OXYC-474 PO; +POLY17PO6 PO
[2017-07-06] MEDS ORDERED: Propofol 10,000 mCg/mL 20 mL Inj ONE (11:46)
[2017-07-06] MEDS ORDERED: fentaNYL-PF 50 mCg/mL 2 mL Inj ONE (11:46)
[2017-07-06 12:05] VITALS: BP 146/79; PULSE 62; RESP 16; O2SAT 99
[2017-07-06] MEDS ORDERED: MetoCLOpramide 5 mg/mL 2 mL Inj IVPUSH PRN (12:50)
[2017-07-06] MEDS ORDERED: Lactated Ringer's 1,000 ML IV SCH (12:50)
[2017-07-06] MEDS ORDERED: Ondansetron 2 mg/mL 2 mL Inj IVPUSH PRN (12:50)
--- NOTE | 2017-07-06 12:51 | PCM.HPANE ---
Patient Data Surgeon Admitting Provider: Attending Provider:Edilia Manzo MD Primary Care Physician:Addi Osorio MD Other Provider:[facility] Reason for Visit Screening, Gerd Ht/WT & BMI Height (Feet): 5 Height (Inches): 5 Weight (Kilograms): 111.13 Body Mass Index 40.00 Allergies Coded Allergies: EDSON Inhibitors (Verified Allergy, Severe, Leg and chest pIn, 04/03/17) etodolac (Verified Allergy, Severe, HIVES, 04/03/17) iodine (Verified Allergy, Severe, Blistering, 04/03/17) latex (Verified Allergy, Unknown, UNKNOWN, 04/03/17) erythromycin base (Verified Adverse Reaction, Severe, Stomach pain, ) Past Anesthesia History Anesthesia History: Denies:: Abnormal Airway, Anesthesia Reactions, Difficult Intubation, Fam Anesthesia Reaction, Fam Malignant Hypertherm, Malignant Hyperthermia Diabetes History Hx Diabetes?: No MRSA MRSA: No Medications Blood Thinner: Aspirin Last Dose Blood Thinner: Jul 05, 2017 Home Meds Incl Beta Fitz: Yes Date Beta Fitz Taken: Jul 06, 2017 Time Beta Fitz Taken: 07 Reported Medications Metoprolol Succinate ER 25 Mg Tab.er.24h25 Mg PO QAM Ref 0 02/10/17 Atorvastatin (Lipitor)40 Mg [id number] Mg PO HS Ref 0 02/10/17 Aspirin Chew 81 Mg Chew81 Mg PO DAILY Ref 0 02/10/17 Discontinued Reported Medications Lactobacillus Acidophilus (Probiotic)1 Each Capsule1 Each PO DAILY 04/03/17 Spironolactone/HCTZ 25-25 mg (Aldactazide 25-25 mg)1 Tab Tablet1 Tablet PO DAILY Ref 0 04/03/17 Cyanocobalamin (Vitamin B12)500 Mcg [id number] Mcg PO DAILY 02/10/17 Fish Oil/Borage/Flax/Om3,6,9#1 (Alleman 3-6-9 1,200 mg Softgel)1,200 Mg Capsule1, 200 Mg PO DAILY 02/10/17 Cholecalciferol (Vitamin D3) (Vitamin D3)2,000 Unit Tablet1,000 Unit PO DAILY 02/10/17 Discontinued Scripts Polyethylene Glycol 3350 (Miralax)17 Gm Powd.pack17 Gm PO DAILY #20 DOSE Prov:Africa Pinon MD 04/08/17 Oxycodone (Roxicodone)5 Mg Tablet2.5-5 Mg PO Q4H PRN For Pain #14 TABLET Ref 0 Prov:Africa Pinon MD 04/08/17 History History of ENT Problems?: Yes HEENT History: Positive for:: Sinus Problem (freq sinus infections) Denies:: Abnormal Airway Cataracts Difficult Intubation Dysphagia Hearing Problem Denture Type: None Teeth Condition: Within Normal Limits Hx of Heart Problems?: Yes Cardiovascular History: Positive for:: Cardiac Surgery (S/P HEART CATH/STENTS 11/2015, CABG (2 VESSEL) 01/2016) Chest Pain (LAST YEAR) Hypertension Denies:: AICD Atrial Fibrillation Congestive Heart Failure Heart Murmur (ECHO 11/2015 EF 60%) Irregular Heartbeat Pacemaker Thrombophlebitis Valvular Heart Disease Hx of Respiratory Problem?: No Respiratory History: Positive for:: Dyspnea Denies:: Asthma COPD Chest Surgery Cough Emphysema Hemoptysis Pneumonia Tuberculosis Use of C-PAP Machine (SUSPECT CAREN+ SLEEP STUDY ORDERED BUT NOT PERFORMED ) Hx Neurologic Problems?: Yes Neurological History: Positive for:: Headaches Denies:: Alzheimer's Disease CVA Dementia Dizziness Parkinson's Disease Seizures Hx of GI Problems?: Yes Hx of Problems?: No Genitourinary History: Denies:: HX of Hemodialysis Kidney Stones Urinary Tract Infection HX of Peritoneal Dialysis: No Female Hx: Denies:: Currently (TUBAL) Endometriosis Pelvic Inflammatory Problems with Breasts? Skin History: Denies:: History Skin Disorders? Pressure Ulcers Hx Musculoskeletal Problems?: Yes Musculoskeletal History: Positive for:: Back Injury (scoliosis) Musculoskeletal Trauma (S/P B/L ACROMIOPLASTY,RT CUBITAL TUNNEL RELEASE) Denies:: Fibromyalgia Joint Replacement Hx of Psycho/Social Problems?: No Psycho Social History: Denies:: Anxiety Bipolar Disorder Hx Depression Suicide Attempt Hx Surgeries?: Yes (DOUBLE BYPASS, TUBAL, CHOLECYSTECTOMY) Hx Any Other Health Problems?: Yes Other History: Positive for:: Hospitalization (PANCREATITIS 01/2017) Denies:: Cancer Endocrine Disease Thyroid Disease History Blood Transfusions: Denies:: Blood Transfuse Reaction Blood Transfusions Hx Diabetes: No Hx Alcohol Use: Yes (MAYBE 1 DRINK PER WEEK )Hx Substance Use: No Smoking Status: Former Smoker Have You Smoked inLast 12 mo: No Stop/Bang Treated for Sleep Apnea?: No Do You Have a CPAP Machine?: No S-Snoring: Do You Snore Loudly: Yes T-Tired: feel tired, fatigued: No O-Obsered: Observed not breath: No P-Blood Pressure: treated: Yes B- Body Mass Index > 35 kg/m2: Yes A- Age over 50: Yes N- Neck Large Circumference: Yes G- Gender Male: No CAREN Total Score: 5 Risk Assessment Category Category 1A: Patient has history of documented sleep apnea, and HAS NOT received any narcotic, sedative or anesthesia administration during this stay. Category 1B: Patient has history of documented sleep apnea, and HAS received any narcotic , sedative or anesthesia administration during this stay Category 2: Patient has SUSPECTED Obstructive Sleep Apnea, and HAS received any narcotic , sedative or anesthesia administration during this stay. Category 3: Patient has SUSPECTED Obstructive Sleep Apnea and HAS NOT received narcotic, sedative or anesthesia administration during this stay. Category 4: Outpatient in Procedural Areas with known sleep apnea or who screen positive for High Risk via the STOP/BANG questionnaire. Exam Exam Vital Signs Vital Signs Date Time Temp Pulse Resp B/P Pulse Ox O2 Delivery O2 Flow Rate FiO2 07/06/17 12:05 36.5 62 16 146/79 99 Room Air General Appearance: Alert HEENT/AIRWAY: MP 2, Neck Movement (from, 3 fb) Lungs: Clear to Auscultation Heart: Regular Rate/Rhythm Plan Impression Patient chart reviewed, patient interviewed and anesthestic plan with risks, benefits, and alternatives discussed, and informed consent obtained. NPO per Anesth. Guidelines: Yes ASA Physical Status: ASA3 Severe Disease Anesthetic Plan: MAC Bene/Risks/Altern/Consents: Yes HP Complete Prior to Induction: Yes Yadiel Mccullough MD Jul 06, 2017 12:51
[2017-07-06 13:47] VITALS: BP 127/74; PULSE 72; RESP 16; O2SAT 99
--- NOTE | 2017-07-06 13:48 | PCM.ANEP1 ---
Post Anesthesia PACU Phase 1 Assessment Vital Signs Vital Signs Date Time Temp Pulse Resp B/P Pulse Ox O2 Delivery O2 Flow Rate FiO2 07/06/17 12:05 36.5 62 16 146/79 99 Room Air Anesthetic Administered: MAC Level of Alertness: Awake, talking VICKERS's with Equal Strength: Yes Pain: No Nausea or Vomiting: No CV Function & Hydration Stable: Yes Airway Device: Oxygen Delivery: Room Air Lungs: Clear to Auscultation PACU Phase 2 Assessment Complications: No Follow up Care: N/A Patient Instructions Provided: N/A Yadiel Mccullough MD Jul 06, 2017 13:48
[2017-07-06 13:58] VITALS: BP 143/84; PULSE 68; RESP 16; O2SAT 99
[2017-07-06 14:08] VITALS: BP 149/80; PULSE 60; RESP 16; O2SAT 98
--- NOTE | 2017-07-06 14:26 | ENDO ---
[address] [address] ENDOSCOPY PROCEDURE PATIENT: VIRGINIA AYOUB : 1960 MR#: [id number] ADMIT: 07/06/2017 JOB ID: [id number] DATE OF SERVICE: 07/06/2017 SURGEON: Edilia Manzo MD PREPROCEDURAL DIAGNOSIS: Gastroesophageal reflux disease, Helicobacter pylori, colon cancer screening. POSTPROCEDURAL DIAGNOSIS: Gastroesophageal reflux disease, Helicobacter pylori, colon cancer screening; duodenitis, gastritis. PROCEDURE: 1. Upper endoscopy with cold forceps biopsies. 2. Colonoscopy with cold forceps biopsies. INSTRUMENT: Olympus GIFH-180J and Olympus PCFH-190EL. ANESTHESIA: Monitored anesthesia care. PREPARATION: Good. WITHDRAWAL TIME: 22 minutes and 11 seconds. FINDINGS: 1. Mild duodenitis and mild gastritis were seen on upper endoscopy, which was otherwise normal. 2. Multiple tiny polyps were seen in the rectosigmoid, several were sent for biopsy. A lipoma was seen in the distal transverse colon as well. DESCRIPTION OF PROCEDURE: The patient was brought to the endoscopy suite, and placed in left lateral decubitus position. A bite block was placed and monitored anesthesia care was performed after performance of a preprocedural pause. The endoscope was advanced in the esophagus which was normal. The GE junction was at 40 cm and was completely normal. The endoscope was then advanced into the stomach and then into the duodenum. The duodenal bulb appeared mildly inflamed and a biopsy was performed. The D2 and D3 appeared normal. The endoscope was slowly withdrawn. The antrum contained trace gastritis which was biopsied. At the site of the biopsy of the antrum of the stomach, some active bleeding was seen, and therefore two clips were placed and the bleeding was controlled. There are no masses or polyps in the stomach. Retroflex view demonstrated Hill grade 1 flap valve. The endoscope was then removed. Attention was turned to the colonoscopy. Digital rectal examination was performed and was normal. External examination was normal, with no sign of hemorrhoids. The colonoscope was advanced to the cecum which was identified by the ileocecal valve and the appendiceal orifice. It was slowly withdrawn. A lipoma was seen in the distal transverse colon and was confirmed with pillow test. After slow withdrawal, the only polyps that were identified were in the rectosigmoid between 10 and 25 cm. There were multiple 5 mm benign-appearing polyps at this location. Six of these were removed and were sent for final pathology in a single specimen jar. Retroflexed examination of the rectum was normal. The colonoscope was then withdrawn. COMPLICATIONS: None. ESTIMATED BLOOD LOSS: None. SPECIMENS: None. [facility]
[2017-07-07] MEDS ORDERED: Lactated Ringer's 1,000 ML IV ONE (06:00)
--- NOTE | 2017-07-13 17:40 | PATH ---
SURGICAL PATHOLOGY Attending Physician:Edilia Manzo MD CASE STATUS: Signed Out PATIENT NAME: VIRGINIA AYOUB PID: [id number] : 1960 DATE COLLECTED:07/06/2017 00:00 SPECIMEN: 1: Duodenum, Biopsy 2: Stomach, Antrum, Biopsy 3: Colon, Polyp CLINICAL HISTORY: 1). DUODENAL BIOPSY 2). ANTRUM BIOPSY (RULE OUT H.PYLORI) 3). RECTAL-SIGMOID POLYPS X6 (10-25CM) FINAL DIAGNOSIS: 1. Duodenum, Biopsy: Mild active duodenitis. Negative for granulomata, dysplasia or malignancy. 2. Designated Antrum, Biopsy: Gastric body mucosa with chronic focally active Helicobacter gastritis. Helicobacter organisms identified on immunohistochemistry. Negative for intestinal metaplasia, dysplasia, and malignancy. 3. Rectal Sigmoid Polyps x6 (20-25 cm), Biopsies: Fragments of hyperplastic polyp. Fragments of colonic mucosa with no diagnostic abnormality consistent with polypoid redundancy. ICD10: B96.81 K63.5 GROSS DESCRIPTION: The specimen is received in three formalin filled containers labeled with the patient's name. 1). The specimen is labeled "duodenal" and consists of a 0.3 x 0.2 x 0.2 CM portion of tissue which is entirely submitted in cassette 1A. 2). The specimen is labeled "antrum" and consists of a 0.4 x 0.3 x 0.2 CM portion of tissue which is entirely submitted in cassette 2A. 3). The specimen is labeled "rectal sigmoid polyps" and consists of multiple portions of tissue which aggregate to 0.4 x 0.3 x 0.2 CM. The specimen is entirely submitted in cassette 3A. 07/07/2017DC MICRO DESCRIPTION: Part 2: An immunohistochemical stain was performed to evaluate for Helicobacter organisms and is positive. * This test was developed and its performance characteristics determined by [employer]. It has not been cleared or approved by the U.S. Food and Drug Administration. The FDA has determined that such clearance or approval is not necessary. This test is used for clinical purposes. It should not be regarded as investigational or for research. ICD-9 CODES: CPT CODES: 1: 53750 2: 02350, 65541 3: 37673 Electronically Signed Out Jose Norman MD, Ph.D. [facility] [address], [place] [address] Technical component performed at [facility], [address], [place], [address]
== END 2017-07-06 23:59 | disposition home or self-care (01) ==
LOC: END 11:45
PROVIDERS: ATTEND Surgery
DX: Z12.11 Encounter for screening for malignant neoplasm of colon (principal); Z86.010 Personal history of colon polyps; K62.1 Rectal polyp; D17.79 Benign lipomatous neoplasm of other sites; K29.80 Duodenitis without bleeding; B96.81 Helicobacter pylori [H. pylori] as the cause of diseases classified elsewhere; K29.70 Gastritis, unspecified, without bleeding; K21.9 Gastro-esophageal reflux disease without esophagitis; I10 Essential (primary) hypertension; E78.5 Hyperlipidemia, unspecified; I25.10 Atherosclerotic heart disease of native coronary artery without angina pectoris; M54.5 Low back pain; I25.2 Old myocardial infarction; K85.90 Acute pancreatitis without necrosis or infection, unspecified; Z87.891 Personal history of nicotine dependence; Z95.1 Presence of aortocoronary bypass graft; Z79.82 Long term (current) use of aspirin
CPT/HCPCS: 43239; 45380; J2250; J2704; J3010; J7120